=== PATIENT | male | born 1990 | race Caucasian/White ===

== ENCOUNTER 2020-11-17 13:07 | Emergency (ER) | payer MEDICARE, BC, SELFPAY ==
[2020-11-17 13:09] VITALS: BP 113/70; PULSE 76; RESP 16; TEMP 36.7; O2SAT 100; BMI 25.4
--- NOTE | 2020-11-17 14:03 | PC.NURSE ---
at bedside suturing
--- NOTE | 2020-11-17 14:06 | HMH.EDGENADL ---
ED Disposition Clinical Impression: Laceration of left hand, complicated Disposition: Home, Self-Care Condition on Discharge: Good Instructions: DI for Laceration Repair Additional Instructions: Return for worsening swelling pus fever or any other concerns for infection within 8 hours otherwise follow-up with your primary care physician within the next few days. If the laceration sutures do not fall out after 14 days have them removed. If you have any difficulty with movement of the thumb or numbness return to the emergency department Referrals: Provider,Referral, [Primary Care Provider] - - Critical Care Critical Care Time: No Attestation: On 11/17/20, the high probability of a clinically significant, sudden or life threatening deterioration of the following system(s) required my full and direct attention, intervention and personal management. The time I documented below is in addition to time spent performing reported procedures but includes the following listed in this critical care notation. Medical Decision Making - Medical Records Medical records reviewed: Yes: I reviewed the patient's medical records. - Robbie Inquiry Pt receiving controlled substance: No Vital Signs: 11/17/20 13:09 Temperature 98.0 F Temperature Source Oral Pulse Rate [Right] 76 Respiratory Rate 16 Blood Pressure [Right Arm] 113/70 Blood Pressure Mean [Right Arm] 84 Blood Pressure Source [Right Arm] Automatic Cuff Blood Pressure Position [Right Arm] Sitting 02 Sat by Pulse Oximetry 100 Oxygen Delivery Method Room Air Orders (Tests/Meds): ED MEDICATIONS Discontinued Medications Generic Name Dose Route Start Last Admin Trade Name Freq PRN Reason Stop Dose Admin Lidocaine/Epinephrine 10 ml 11/17/20 13:29 11/17/20 13:46 Lidocaine 1% W/Epi 1:100,000 20ml Vial SQ 11/17/20 13:30 10 ml ONCE ONE Administration Tetanus/Reduced Diphtheria/Acell Pertussis 0.5 ml 11/17/20 13:35 11/17/20 13:44 Tet/Diphth/Pert-Adult 0.5ml Syringe IM 11/17/20 13:36 0.5 ml .ONCE ONE Administration Medical Decision Narrative: 30-year-old male presents with laceration to left hand. It is over the thenar eminence and the muscle is partially torn however he does have full range of motion of thumb and 5 out of 5 strength. Neurovascularly intact with sensation intact. The wound was clean we did copiously irrigate it. Updated tetanus and laceration was repaired with return precautions given General Adult HPI - General Chief complaint: Wound/Laceration Stated complaint: cut on right hand Time Seen by Provider: 11/17/20 13:10 Mode of Arrival: Ambulatory Limitations: No Limitations Description of Symptoms (Recalled from ER Triage Doc. by RN): Pt was working on a leather belt when he sliced the palm of his right hand - History of Present Illness HPI narrative: 30-year-old male presents with left hand laceration after trying to cut a belt with a knife. He says injury occurred right before arrival. Unknown last tetanus. The bleeding is controlled at this time and he has no numbness distal to his thumb is able to move his thumb in all directions. No other injuries at this time the wound was also clean pain is dull nonradiating - Related Data Home Medications Medication Instructions Recorded Confirmed Buprenorphine HCl/Naloxone HCl 1 each SL DAILY 08/28/17 10/07/17 [Suboxone 8 mg-2 mg Sl Film] Allergies Allergy/AdvReac Type Severity Reaction Status Date / Time No Known Allergies Allergy Verified 10/07/17 21:19 [facility] History - Hepatitis A Screen Drug use history?: No High risk sexual behaviors?: No History of sexually transmitted infection?: No Currently employed?: No Childcare worker?: No Do you have indoor plumbing?: Yes Do you have electricity?: Yes Attestation statement:: This patient has been screened for Hepatitis A risk factors. Medical History: Denies:: Cancer, Diabetes Mellitu
[2020-11-17 14:08] VITALS: BP 112/70; PULSE 76; RESP 20; O2SAT 100
[2020-11-17 14:15] VITALS: BP 112/70; PULSE 76; RESP 18; TEMP 36.7; O2SAT 100
== END 2020-11-17 14:15 | disposition home or self-care (01) ==
PROVIDERS: Emergency Provider Emergency Medicine
DX: S61.412A Laceration without foreign body of left hand, initial encounter (principal); W26.0XXA Contact with knife, initial encounter; Y93.89 Activity, other specified; Z23 Encounter for immunization; Z79.891 Long term (current) use of opiate analgesic; Z72.0 Tobacco use
CPT/HCPCS: 13132; 90471; 90715; 99282

== ENCOUNTER 2021-08-12 22:31 | Emergency (ER) | payer MEDICARE, BC, SELFPAY ==
[2021-08-12 22:35] VITALS: RESP 0; O2SAT 0; BMI 24.3
--- NOTE | 2021-08-12 22:35 | HMH.EDGENADL ---
ED Disposition Clinical Impression: Malignancy Respiratory failure Qualifiers: Chronicity: unspecified Respiratory failure complication: hypoxia Qualified Code(s): J96.91 - Respiratory failure, unspecified with hypoxia Overdose Qualifiers: Encounter type: initial encounter Injury intent: accidental or unintentional Qualified Code(s): T50.901A - Poisoning by unspecified drugs, medicaments and biological substances, accidental (unintentional), initial encounter Disposition: Condition on Discharge: . - Critical Care Critical Care Time: Yes Attestation: On , the high probability of a clinically significant, sudden or life threatening deterioration of the following system(s) required my full and direct attention, intervention and personal management. The time I documented below is in addition to time spent performing reported procedures but includes the following listed in this critical care notation. Total Critical Care Time: 30 Vital system(s) involved:: Circulatory Failure, Central Nervous System, Respiratory Failure My critical care processes included: Assessment & monitoring of V/S, Initial and Re-exams, Coordinating Care, Documentation Medical Decision Making - Medical Records Medical records reviewed: Yes: I reviewed the patient's medical records. - Robbie Inquiry Pt receiving controlled substance: No Vital Signs: 08/12/21 22:35 Respiratory Rate 0 L 02 Sat by Pulse Oximetry 0 L Orders (Tests/Meds): ED MEDICATIONS Discontinued Medications Generic Name Dose Route Start Last Admin Trade Name Freq PRN Reason Stop Dose Admin Epinephrine HCl 0.1 mg 08/12/21 22:13 08/13/21 00:05 Epinephrine 1 Mg/Ml Ampul IV 08/12/21 22:14 0.1 mg ONCE ONE Administration Lidocaine HCl 10 ml 08/12/21 23:56 08/12/21 23:58 Lidocaine 1% 10ml Mdv SQ 08/12/21 23:57 10 ml ONCE ONE Administration Medical Decision Narrative: Patient is a 31-year-old male who presents as a CODE BLUE. Differential diagnosis includes, but is not limited to cardiac arrest, cardiac arrhythmia, respiratory arrest, overdose, other. On initial exam, patient is unresponsive. Initial pulse check on arrival, patient's rhythm on the monitor is asystole. CPR resumed, epinephrine given. On additional pulse check, no pulse present. Asystole on monitor. Bedside ultrasound shows no cardiac activity whatsoever. Given prolonged downtime, unsuccessful resuscitation for 1 hour or more, no signs of life, time of was called at 22:14. I spoke with family after patient , informed me that he had a malignant and terminal brain tumor. Additionally, had a history of drug abuse, was found with drug paraphernalia. Family declined autopsy. Case declined by waxing machine operator. General Adult HPI - General Stated complaint: cardiac arrest Time Seen by Provider: 08/12/21 22:35 - History of Present Illness HPI narrative: Patient is a young male in appearance presenting as a CODE BLUE. Per EMS, patient was found down for approximately 20 to 30 minutes prior to EMS arrival. Per EMS, no bystander CPR was performed. Initial rhythm on the monitor was asystole. Patient has been coded approximately 30 minutes prior to arrival to the emergency department. Intubated on scene, given 4 rounds of epinephrine, bicarbonate. Patient continues to have asystole on the monitor. - Related Data Home Medications Medication Instructions Recorded Confirmed Buprenorphine HCl/Naloxone HCl 1 each SL DAILY 08/28/17 10/07/17 [Suboxone 8 mg-2 mg Sl Film] Allergies Allergy/AdvReac Type Severity Reaction Status Date / Time No Known Allergies Allergy Verified 10/07/17 21:19 [facility] History - Hepatitis A Screen Attestation statement:: This patient has been screened for Hepatitis A risk factors. Medical History: Denies:: Cancer, Diabetes Mellitus Type 1, Diabetes Mellitus Type 2, MRSA Amputation: Yes Fractures: No -
--- NOTE | 2021-08-12 23:47 | PC.NURSE ---
Per aircraft restorer, patient is released from his care and it is ok to proceed with bam.
--- NOTE | 2021-08-13 00:01 | PC.NURSE ---
Spoke with [employer] artist's representative. Case id is [id number]. Per Amor, due to patient history of IV drug use patient is not a candidate for organ or tissue donation.
--- NOTE | 2021-08-13 00:36 | PC.NURSE ---
Systems Management Consultant has released pt, he contacted [facility] and they are on their way. Family have left to go home.
[2021-08-13 03:04] VITALS: BP 40/0
--- NOTE | 2021-08-13 03:28 | PC.NURSE ---
Patient arrived via [facility]. Per EMS pt was found down in the bathroom of his residence at approx 2110. Family attempted to resuscitate patient for 30 minutes while awaiting ems arrival. EMS arrived at approximately 2140 and found the patient unresponsive and in asystole. Patient arrived to [facility] er at 2208, code blue called at 2210 and code flow began in room 2. Pulse check at 2212. Patient remained in asystole. Zole pads were applied to patients chest at 221. Patient remained asystole. 0.1mg of epi given at 2213 Pulse check at 2213. Patient remained asystole Code cancel was called at 2215 after discussing that patient had been non-responsive and asystole for greater than one hour per ems report and had remained in asystole.
[2021-08-13 03:30] VITALS: BP 00/00; PULSE 0; RESP 0; TEMP -17.7; TEMP 0
== END 2021-08-13 03:35 | disposition expired ==
PROVIDERS: Emergency Provider Emergency Medicine
DX: J96.91 Respiratory failure, unspecified with hypoxia (principal); T50.901A Poisoning by unspecified drugs, medicaments and biological substances, accidental (unintentional), initial encounter; C80.1 Malignant (primary) neoplasm, unspecified
CPT/HCPCS: 31500; 92950; 96374; 99291